=== PATIENT | female | born 1995 ===

== ENCOUNTER 2021-04-17 03:16 | Emergency (ER) | payer BC, OTHER ==
--- OUTSIDE RECORDS SUMMARY | 2021-04-17 03:19 | XMS REPORT | Continuity of Care Document ---
:1995 Author Organization [facility] t Address [address] [place] [address] [address] [place] [address] Care Team Providers Name Role Phone Violetta SARABIA Primary Care Physician Unavailable SALEEM RAMIREZ Attending Clinician Unavailable MARISOL Attending Clinician Unavailable Marisol OHARA Attending Clinician Александр FARLEY Attending Clinician Saleem Ramirez MD Attending Clinician EBADRI Attending Clinician Unavailable YUNI Attending Clinician Unavailable UNKNOWN Attending Clinician Unavailable DICLEMENTE Attending Clinician Unavailable DICLEMENTE Attending Clinician Unavailable SALEEM RAMIREZ Admitting Clinician Unavailable Agustín DAS Admitting Clinician Unavailable Payers Payer Name Policy Type Policy Number Effective Date Expiration Date [place] [facility] [id number] 2018 00:00:00 [facility] [id number] 2019 CHOICE MEDICAID 00:00:00 Problems Condition Condition Condition Status Onset Resolution Last Treating Co mments Source Name Details Category Date Date Treatment Clinician Date Morbid Morbid Disease Active Univers obesity obesity 5-28 [place] mass index 00 [place] dical of of Branch 40.0-49.9 40.0-49.9 Genital Genital Disease Active Overview: Univ ers warts warts 4-12 Formattin ity of 00:00: g of this [place] 00 note Medical might be Branch different from the original. 07/30/18 - perineal and hymenal genital warts s/p excision. Histology consisten t with benign condyloma . 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 - ity of 00:00: [place] 00 [facility] Allergies, Adverse Reactions, Alerts Allergy Allergy Status Severity Reaction(s) Onset Inactive Treating Comm ents Source Name Type Date Date Clinician NO KNOWN Drug Active Univers ALLERGIE Class ity of S [facility] Social History Social Habit Start Date Stop Date Quantity Comments Source Exposure to Not sure [facility] SARS-CoV-2 [facility] (event) [place] Alcohol intake 2021-03-25 2021-03-25 Current drinker Unive rsity of 00:00:00 00:00:00 of alcohol [facility] (finding) [place] Tobacco use and 2016-03-27 2016-03-27 Never used Universit y of exposure 00:00:00 00:00:00 [facility] Sex Assigned At [birth year] Universit y of 00:00:00 00:00:00 [facility] Smoking Status Start Date Stop Date Source Never smoker [facility] Medications Ordered Filled Start Stop Current Ordering Indication Dosage Frequency Signature Comments Components Source Medication Medication Date Date Medication? Clinician (SIG) Name Name mich 2020-04 Yes [id number] 5mL Take 5 mL Univers mine-pseudo 05-26 by mouth 4 it y of ephedrine-D 00:[place] (BROMFED 00 times Medical DM) 2-30-10 daily as Bran ch mg/5 mL needed for syrup Congestion /Allergies or Cough. ondansetron 2020-04 Yes [id number] 4mg Take 1 Univers 4 mg 2-01 tablet by ity of disintegrat 00:00: mouth [place] ing tablet 00 every 8 Medica l (eight) Branch hours as needed for Nausea and Vomiting (N/V). benzonatate 2020-04 Yes [id number] 200mg Take 2 Univers 100 mg 2-01 capsules ity of capsule 00:00: [place] 2 [place] (two) Medical times Branch daily as needed for Cough. fluticasone 2020-04 Yes [id number] 1{spray Use 1 Univers propionate 2-01 } [place] in ity o f 50 00:00: each [place] mcg/actuati 00 nostril Medic al on nasal daily. Branch spray ondansetron 2020-04 Yes [id number] 4mg Take 1 Univers 4 mg 2-01 tablet by ity of disintegrat 00:00: mouth [place] ing tablet 00 every 8 Medica l (eight) Branch hours as needed for Nausea and Vomiting (N/V). benzonatate 2020-04 Yes [id number] 200mg Take 2 Univers 100 mg 2-01 capsules ity of capsule 00:00: [place] 2 [place] (two) Medical times Branch daily as needed for Cough. fluticasone 2020-04 Yes [id number] 1{spray Use 1 Univers propionate 2-01 } [place] in ity o f 50 00:00: each [place] mcg/actuati 00 nostril Medic al on nasal daily. Branch spray No known No Univers medications 01-16 ity of 14:21: [address] No known No Univers medications 01-16 ity of 14:21: [address] Immunizations Ordered Filled Immunization Date Status Comments [facility] e Immunization Name Name [facility] 2021-01-16 Completed University of 00:00:00 [facility] 2021-01-16 Completed University of 00:00:00 [facility] 2021-01-16 Completed University of 00:00:00 [facility] 2021-01-16 Completed University of 00:00:00 [facility] TDAP 2019-09-01 Completed University of 00:00:00 [facility] TDAP 2019-09-01 Completed University of 00:00:00 [facility] TDAP 2019-09-01 Completed University of 00:00:00 [facility] TDAP 2019-09-01 Completed University of 00:00:00 [facility] 2018-08-06 Completed University of 00:00:00 [facility] 2018-08-06 Completed University of 00:00:00 [facility] 2018-08-06 Completed University of 00:00:00 [facility] 2018-08-06 Completed University of 00:00:00 [facility] Vital Signs Vital Name Observation Time Observation Value Comments Source Systolic blood 2021-03-25 16:03:00 114 mm[Hg] Univer sity of pressure [place] [facility] Diastolic blood 2021-03-25 16:03:00 80 mm[Hg] Unive rsity of pressure [place] [facility] Heart rate 2021-03-25 16:03:00 78 /min Universi ty [facility] [place] [facility] Body temperature 2021-03-25 16:03:00 37.06 Cristy Univ ersity of [place] [facility] Respiratory rate 2021-03-25 16:03:00 18 /min Univ ersity of [place] [facility] Body height 2021-03-25 16:03:00 170.2 cm [facility] [place] [facility] Body weight 2021-03-25 16:03:00 114.443 kg [facility]i [facility] [place] [facility] BMI 2021-03-25 16:03:00 39.52 kg/m2 [facility]i ty [facility] [place] [facility] Oxygen saturation in 2021-03-25 16:03:00 100 /min University of Arterial blood by [place] Jooce lynette Pulse oximetry Branch Systolic blood 2021-03-20 22:16:00 124 mm[Hg] Univer sity of pressure [place] [facility] Diastolic blood 2021-03-20 22:16:00 85 mm[Hg] Unive rsity of pressure [place] [facility] Heart rate 2021-03-20 22:16:00 103 /min [facility]i ty [facility] [place] [facility] Body temperature 2021-03-20 22:16:00 36.78 Cristy Univ ersity [facility] [place] [facility] Respiratory rate 2021-03-20 22:16:00 18 /min Univ ersity [facility] [place] [facility] Body height 2021-03-20 22:16:00 172.7 cm [facility] [place] [facility] Body weight 2021-03-20 22:16:00 112.946 kg [facility]i [facility] [place] [facility] BMI 2021-03-20 22:16:00 37.86 kg/m2 [facility] [place] [facility] Oxygen saturation in 2021-03-20 22:16:00 99 /min University of Arterial blood by [employer] lynette Pulse oximetry Branch Systolic blood 2021-01-16 18:42:00 128 mm[Hg] Univer sity of pressure [place] [facility] Diastolic blood 2021-01-16 18:42:00 82 mm[Hg] Unive rsity of pressure [facility] Heart rate 2021-01-16 18:42:00 96 /min [facility] Body temperature 2021-01-16 18:42:00 36.78 Cristy [facility] Res[facility] rate 2021-01-16 18:42:00 18 /min [facility] Body height 2021-01-16 18:42:[address] [facility] Body weight 2021-01-16 18:42:[address] [facility] BMI 2021-01-16 18:42:00 37.86 kg/m2 [facility] Procedures Procedure Date / Time Performed Performing Clinician Sour e POCT RAPID FLU A AND 2021-03-20 22:36:00 Altagracia Fountain [facility] B TEST [facility] GARDASIL 9 (HPV 9V) 2021-01-16 19:16:43 Demetri Ramirez [facility] VACCINE [facility] POCT TEST 2021-01-16 00:00:[address] [facility] Encounters Start End Encounter Admission Attending Care Care Encounter Source Date/Time Date/Time Type Type Clinicians Facility Department ID 2021-02-15 Outpatient P [facility] [id number] [facility] [id number] Univers [facility]:30[facility] 2021-02-15 Out[facility] P [facility] [id number] Univers [facility]:24[facility] 2022-01-20 2022-01-20 Outpatient R DEMETRI RAMIREZ [facility] [id number] Univers 13:30:00 13:30:00 [id number] [facility] 2021-07-16 2021-07-16 Outpatient R [facility] [id number] Univers 14:00:00 14:00:00 [id number] [facility] 2021-03-25 2021-03-25 Outpatient R MARISOL IDINNA [facility] [id number] Univers 10:00:00 10:24:05 DYLON escamilla o [facility] 2021-03-25 2021-03-25 [facility] [id number] Univers 09:57:29 10:24:05 Care [facility] [id number] i ty of [place] [id number] Juan Carlos as GM?BLEA [id number] [facility] [address] MED[facility] OFFICE [facility] 2021-03-25 2021-03-25 Outpatient R [facility] [id number] Univers 10:00:00 10:00:00 [id number] ity [facility] 2021-03-20 2021-03-20 [facility] [id number] Univers 16:20:00 16:29:02 DYLON sanchez [facility] 2021-03-20 2021-03-20 Urgent Altagracia Fountain [facility] [id number] Univers 16:14:06 16:29:02 [facility] [id number] ity of [place] [id number] Juan Carlos as GM?BLEA [id number] [address] MEDICAL OFFICE [facility] 2021-03-20 2021-03-20 Outpatient R [facility] [id number] Univers 15:40:00 15:40:00 [facility] 2021-01-16 2021-01-16 Office [facility] [id number] Univers 13:26:56 14:18:22 Visit Cam [place] [id number] i ty of [place] [id number] [place] Professio [id number] Nm abdirahman [address] 2021-01-16 2021-01-16 Outpatient R DEMETRI RAMIREZ [facility] [id number] Univers 13:30:00 13:30:00 [id number] [facility] 2021-01-16 2021-01-16 Outpatient R JAMES DEMETRI [facility] [id number] Univers 13:30:00 13:30:00 ity of [facility] 2020-12-13 2020-12-13 Outpatient R DEMETRI RAMIREZ [facility] [id number] Univers 10:00:00 10:00:00 [id number] ity of [facility] 2020-12-13 2020-12-13 Outpatient R DEMETRI RAMIREZ [facility] [id number] Univers 10:00:00 10:00:00 ity of [facility] 2020-11-30 2020-11-30 Outpatient R [facility] [id number] Univers 18:00:00 18:00:00 [id number] ity of [facility] 2020-11-30 2020-11-30 Outpatient R LEIGH [facility] [id number] Univers 18:00:00 18:00:00 MELISSAKUNAL ity [facility] 2020-06-07 2020-06-07 Outpatient R OMERARVIN [facility] [id number] Univers 15:00:00 15:00:00 ROSARIO [id number] ity [facility] 2020-06-07 2020-06-07 [facility] [id number] Univers 15:00:00 15:00:00 ROSARIO ity [facility] 2020-05-11 2020-05-11 Outpatient R [facility] [id number] Univers 09:20:00 09:20:00 [id number] ity [facility] 2020-01-02 2020-01-02 Outpatient R [facility] [id number] Univers 10:40:00 10:40:00 [id number] ity [facility] 2020-01-02 2020-01-02 Outpatient R [facility] [id number] Univers 10:40:00 10:40:00 ity of [facility] 2020-01-01 2020-01-01 Outpatient R [facility] [id number] Univers 08:30:00 08:30:00 [id number] ity [facility] 2020-01-01 2020-01-01 Outpatient R UNKNOWN, [facility] [id number] Univers 08:30:00 08:30:00 ATTENDING ity of [facility] 2019-12-06 2019-12-06 Outpatient R DEMETRI RAMIREZ [facility] [id number] Univers 16:00:00 16:00:00 [id number] ity [facility] 2019-12-06 2019-12-06 Outpatient R DEMETRI RAMIREZ [facility] [id number] Univers 16:00:00 16:00:00 ity [facility] 2019-11-07 2019-11-07 Outpatient R DEMETRI RAMIREZ [facility] [id number] Univers 16:15:00 16:15:00 ity [facility] 2019-11-07 2019-11-07 [facility] [id number] Univers 16:15:00 16:15:00 ity [facility] 2019-11-05 2019-11-05 Outpatient P LATOSHASlava BRIEN [facility] [id number] Univers 17:44:00 17:44:00 [facility] 2019-11-04 2019-11-04 Outpatient R [facility] [id number] Univers 14:00:00 14:00:00 [id number] ity [facility] 2019-11-04 2019-11-04 Outpatient R [facility] [id number] Univers 14:00:00 14:00:00 ity [facility] 2019-10-31 2019-10-31 Outpatient R DEMETRI RAMIREZ [facility] [id number] Univers 16:15:00 16:15:00 [id number] ity [facility] 2019-10-31 2019-10-31 Outpatient R DEMETRI RAMIREZ [facility] [id number] Univers 16:15:00 16:15:00 ity [facility] 2019-10-24 2019-10-24 Outpatient R KATHARINESUNIL [facility] [id number] Univers 09:15:00 09:15:00 ROSARIO ity [facility] 2019-10-24 2019-10-24 Outpatient R YUNI [facility] [id number] Univers 09:15:00 09:15:00 ROSARIO [facility] 2019-10-18 2019-10-18 Outpatient R [facility] [id number] Univers 14:15:00 14:15:00 ity [facility] 2019-10-18 2019-10-18 Outpatient R [facility] [id number] Univers 14:15:00 14:15:00 ity of [facility] 2019-10-17 2019-10-17 Outpatient R DEMETRI RAMIREZ [facility] [id number] Univers 15:30:00 15:30:00 [id number] ity of [facility] 2019-10-17 2019-10-17 Outpatient R DEMETRI RAMIREZ [facility] [id number] Univers 15:30:00 15:30:00 ity of [facility] 2019-10-03 2019-10-03 Outpatient R YUNI [facility] [id number] Univers 16:30:00 16:30:00 ROSARIO [id number] ity [facility] 2019-10-03 2019-10-03 Outpatient R OMERARVIN [facility] [id number] Univers 16:30:00 16:30:00 ROSARIO ity [facility] 2019-09-19 2019-09-19 Outpatient R [facility] [id number] Univers 08:00:00 08:00:00 ity [facility] 2019-09-19 2019-09-19 Outpatient P [facility] [id number] Univers 08:00:00 08:00:00 ity [facility] 2019-09-15 2019-09-15 Outpatient R DEMETRI RAMIREZ [facility] [id number] Univers 15:30:00 15:30:00 [id number] ity of [facility] 2019-09-15 2019-09-15 Outpatient R DEMETRI RAMIREZ [facility] [id number] Univers 15:30:00 15:30:00 ity [facility] 2019-09-01 2019-09-01 Outpatient R YUNI [facility] [id number] Univers 13:00:00 13:00:00 ROSARIO [id number] ity [facility] 2019-09-01 2019-09-01 Outpatient R YUNI [facility] [id number] Univers 13:00:00 13:00:00 ROSARIO ity [facility] 2019-08-10 2019-08-10 Outpatient DEMETRI AMES [facility] [id number] Univers 13:00:00 13:00:00 [id number] [facility] 2019-08-10 2019-08-10 Outpatient DEMETRI AMES [facility] [id number] Univers 13:00:00 13:00:00 [facility] 2019-07-13 2019-07-13 Outpatient Didier TELLOARVIN [facility] [id number] Univers 13:00:00 13:00:00 ROSARIO [id number] [facility] 2019-07-13 2019-07-13 Outpatient Didier MORRISSEY [facility] [id number] Univers 13:00:00 13:00:00 ROSARIO [facility] 2019-06-27 2019-06-27 Outpatient P [facility] [id number] Univers 08:00:00 08:00:00 [facility] 2019-06-27 2019-06-27 Outpatient P [facility] [id number] Univers 08:00:00 08:00:00 [facility] 2019-06-22 2019-06-22 Outpatient P [facility] [id number] Univers 13:00:00 13:00:00 [facility] 2019-06-15 2019-06-15 Outpatient Didier TELLOARVIN [facility] [id number] Univers 14:45:00 14:45:00 ROSARIO [facility] 2019-03-28 2019-03-28 Outpatient DEMETRI AMES [facility] [id number] Univers 16:01:05 23:59:00 [facility] Results Test Description Test Time Test Comments Results Result Comments Source POCT RAPID FLU A AND B TEST 2021-03-20 22:36:00 Test Item Value Reference Range Interpretation Comme nts POCT INFLUENZA A (test code = 3840) Negative Negative - Negativ e POCT INFLUENZA B (test code = 3841) Negative Negative - Negativ e Lab Interpretation (test code = 70767-3) [id number] 19:15:00 Test Item Value Reference Range Interpretation Comments POCT PREG (test code = 1605) Negative On board controls acceptable with C Yes Line (test code = 3574) POCT PREG LOT # (test code = 3575) POCT PREG TEST DATE (test code = 3576) [id number] 19:15:00 Test Item Value Reference Range Interpretation Comments POCT PREG (test code = 1605) Negative On board controls acceptable with C Yes Line (test code = 3574) POCT PREG LOT # (test code = 3575) POCT PREG TEST DATE (test code = 3576) [facility]
[2021-04-17] MEDS ORDERED: ACETAMINOPHEN 500 MG TAB ONE (04:01)
[2021-04-17 04:52] LABS: SARS-COV-2 RT PCR POSITIVE (NEGATIVE)
[2021-04-17 05:28] LABS: Absolute Lymphocytes (CBC) 0.8 K/uL (0.7-4.9); Hematocrit 39.1 % (36.0-45.0); Lymphocytes % 10.1 % (15.3-44.8); MPV 7.9 fL (7.6-11.3); RBC Red Blood Cell Count 4.99 M/uL (3.86-4.86)
[2021-04-17] MEDS ORDERED: NA CHLORIDE 0.9% 1,000 ML ONE (05:37)
[2021-04-17 05:40] LABS: Protime INR 1.02
[2021-04-17 05:44] LABS: ALT/SGPT 25 U/L (12-78); AST/SGOT 15 U/L (15-37); Albumin 3.5 g/dL (3.4-5.0); Alkaline Phosphatase 77 U/L (45-117); BUN Blood Urea Nitrogen 8 mg/dL (7-18); Bicarbonate 23 mmol/L (21-32); Bilirubin Direct 0.1 mg/dL (0-0.2); Bilirubin Total 0.3 mg/dL (0.2-1.0); Glucose Level 127 mg/dL (74-106); Magnesium 2.1 mg/dL (1.8-2.4); NT PRO-BNP 28 pg/mL (<125); Potassium 3.5 mmol/L (3.5-5.1); Protein, Total 7.4 g/dL (6.4-8.2); Sodium Level 136 mmol/L (136-145); Troponin (Emerg Dept Use Only) < 0.02 ng/mL (0.0-0.045)
[2021-04-17 06:04] LABS: Urine Blood Negative (Negative); Urine Glucose Negative (Negative); Urine Protein Negative (Negative); Urine Specific Gravity 1.015 (1.005-1.030); Urine pH 5.5 (5.0-7.0)
--- NOTE | 2021-04-17 06:46 | EDPHYS ---
Physician Documentation [facility] Name: Kasandra Brown Age: 26 yrs Sex: Female : 1995 Arrival Date: 04/17/2021 Time: 03:20 Bed 15 Private MD: ED Physician Gopal Barrera HPI: 04/17 05:06 This 26 yrs old Female presents to ER via Ambulatory with complaints of Fever, Chest mh7 Pain, Sore Throat, BODY ACHES. 05:06 The patient reports fever, not measured (subjective). Onset: The symptoms/episode mh7 began/occurred yesterday. Modifying factors: there are no obvious modifying factors. Associated signs and symptoms: Pertinent positives: chest pain, cough, that is dry, myalgias, sinus congestion, sore throat, Body aches, Pertinent negatives: abdominal pain, altered mental status, arthralgias, backache, chills, diarrhea, pulling at ears, earache, headache, hemoptysis, nausea, night sweats, sinus drainage, skin rash, shortness of breath, swelling, vomiting. Severity of symptoms: At their worst the symptoms were moderate yesterday, in the emergency department the symptoms have improved moderately. 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 - Social history:: Smoking status: Patient denies any tobacco usage or history of. ROS: 05:06 Eyes: Negative for injury, pain, redness, and discharge, Neck: Negative for injury, mh7 pain, and swelling, Abdomen/GI: Negative for abdominal pain, nausea, vomiting, diarrhea, and constipation, Back: Negative for injury and pain, : Negative for injury, bleeding, discharge, and swelling, MS/Extremity: Negative for injury and deformity, Skin: Negative for injury, rash, and discoloration, Neuro: Negative for headache, weakness, numbness, tingling, and seizure, Psych: Negative for depression, anxiety, suicide ideation, homicidal ideation, and hallucinations, Allergy/Immunology: Negative for hives, rash, and allergies, Endocrine: Negative for neck swelling, polydipsia, polyuria, polyphagia, and marked weight changes. Exam: 05:06 Constitutional: This is a well developed, well nourished patient who is awake, alert, mh7 and in no acute distress. Head/Face: Normocephalic, atraumatic. Eyes: Pupils equal round and reactive to light, extra-ocular motions intact. Lids and lashes normal. Conjunctiva and sclera are non-icteric and not injected. Cornea within normal limits. Periorbital areas with no swelling, redness, or edema. ENT: Nares patent. No nasal discharge, no septal abnormalities noted. Tympanic membranes are normal and external auditory canals are clear. Oropharynx with no redness, swelling, or masses, exudates, or evidence of obstruction, uvula midline. Mucous membranes moist. Neck: Trachea midline, no thyromegaly or masses palpated, and no cervical lymphadenopathy. Supple, full range of motion without nuchal rigidity, or vertebral point tenderness. No Meningismus. Chest/axilla: Normal chest wall appearance and motion. Nontender with no deformity. No lesions are appreciated. Cardiovascular: Regular rate and rhythm with a normal S1 and S2. No gallops, murmurs, or rubs. Normal PMI, no JVD. No pulse deficits. Respiratory: Lungs have equal breath sounds bilaterally, clear to auscultation and percussion. No rales, rhonchi or wheezes noted. No increased work of breathing, no retractions or nasal flaring. Abdomen/GI: Soft, non-tender, with normal bowel sounds. No distension or tympany. No guarding or rebound. No evidence of tenderness throughout. Back: No spinal tenderness. No costovertebral tenderness. Full range of motion. Skin: Warm, dry with normal turgor. Normal color with no rashes, no lesions, and no evidence of cellulitis. MS/ Extremity: Pulses equal, no cyanosis. Neurovascular intact. Full, normal range of motion. Neuro: Awake and alert, GCS 15, oriented to person, place, time, and situation. Cranial nerves II-XII grossly intact. Motor strength 5/5 in all extremities. Sensory grossly intact. Cerebellar exam normal. Normal gait. Psych: Awake, alert, with orientation to person, place and time. Behavior, mood, and affect are within normal limits. Vital Signs: 03:48 BP 117 / 61; Pulse 104; Resp 16 S; Temp 101.3(O); Pulse Ox 99% on R/A; Weight 113.4 kg bb (R); Height 5 ft. 7 in. (170.18 cm) (R); Pain 6/10; 05:00 Temp 99.6(O); bb 06:45 BP 109 / 65; Pulse 93; Resp 18; Pulse Ox 100% on R/A; sm5 03:48 Body Mass Index 39.16 (113.40 kg, 170.18 cm) bb MDM: 06:44 Differential diagnosis: viral Infection, bacterial infection, URI, bronchitis, mh7 pneumonia. Data reviewed: vital signs, nurses notes, lab test result(s), CBC, electrolytes, Flu: negative urinalysis, Covid positive, EKG, radiologic studies, plain films. Data interpreted: Pulse oximetry: on room air is 99 %. Interpretation: normal. Counseling: I had a detailed discussion with the patient and/or guardian regarding: the historical points, exam findings, and any diagnostic results supporting the discharge/admit diagnosis, lab results, radiology results, the need for outpatient follow up. Response to treatment: the patient's symptoms have resolved after treatment, the patient's blood pressure is in an acceptable range, mental status has returned to baseline, the patient no longer shows bradycardia, the patient is not short of breath, the patient is not tachycardic, the patient's pain is gone, the patient's temperature has normalized, patient is well hydrated. 06:46 Patient medically screened. mh7 06:47 ED course: Well-appearing, no acute distress, vital signs stable, no focal neurological 7 deficits. No chest pain, shortness of breath, nausea, vomiting or other complaints. Discussed all test results and findings with the patient. Also discussed with patient could qualify for monoclonal antibody infusion however no monoclonal antibody is available at this time at this facility. Patient not sure if that is the treatment that she wants but explained to patient to call state or her local health department for location of infusion centers if she becomes interested before 10 days of symptoms.. 04/17 03:54 Order name: COVID-19/FLU A+B (Document "Date of Onset" if Symptomatic); Complete Time: bb 04:58 04/17 03:54 Order name: Strep; Complete Time: 04:58 04/17 04:23 Order name: Throat Culture [facility] 04/17 05:05 Order name: Basic Metabolic Panel [facility] 04/17 05:05 Order name: CBC with Diff; Complete Time: 05:41 [facility] 04/17 05:05 Order name: LFT's; Complete Time: 06:26 [facility] 04/17 05:05 Order name: Magnesium; Complete Time: 06:26 [facility] 04/17 05:05 Order name: NT PRO-BNP; Complete Time: 06:26 [facility] 04/17 05:05 Order name: PT-INR; Complete Time: 05:41 [facility] 04/17 05:05 Order name: Troponin (emerg Dept Use Only); Complete Time: 06:26 [facility] 04/17 05:05 Order name: D-Dimer; Complete Time: 05:41 [facility] 04/17 05:06 Order name: Basic Metabolic Panel; Complete Time: 06:26 [facility] 04/17 06:04 Order name: Urine Dipstick-Ancillary; Complete Time: 06:26 [facility] 04/17 06:06 Order name: Urine --Ancillary (enter results) [facility] 04/17 05:05 Order name: XRAY Chest (1 view) [facility] 04/17 05:05 Order name: EKG; Complete Time: 05:06 [facility] 04/17 05:05 Order name: Cardiac monitoring; Complete Time: 05:18 [facility] 04/17 05:05 Order name: EKG - Nurse/Tech; Complete Time: 05:45 [facility] 04/17 05:05 Order name: IV Saline Lock; Complete Time: 05:18 [facility] 04/17 05:05 Order name: Labs collected and sent; Complete Time: 05:18 [facility] 04/17 05:05 Order name: O2 Per Protocol; Complete Time: 05:18 [facility] 04/17 05:05 Order name: O2 Sat Monitoring; Complete Time: 05:18 [facility] 04/17 05:05 Order name: Urine Dipstick-Ancillary (obtain specimen); Complete Time: 06:04 [facility] 04/17 05:05 Order name: Urine Test (obtain specimen); Complete Time: 06:04 [facility] 04/17 06:07 Order name: Urine --Ancillary EDMS Administered Medications: 04:03 Drug: Tylenol 1000 mg Route: PO; bb 05:00 Follow up: Response: No adverse reaction; Temperature is decreased bb 05:45 Drug: NS 0.9% 1000 ml Route: IV; Rate: 1000 ml; Site: right antecubital; sm5 Disposition Summary: 04/17/21 06:46 Discharge Ordered Location: Home [facility] Problem: new [facility] Symptoms: have improved [facility] Condition: Stable [facility] Diagnosis - Coronavirus infection, unspecified [facility] Followup: [facility] - With: Private Physician - When: 1 - 2 days - Reason: Worsening of condition, Recheck today's complaints, Continuance of care, Re-evaluation by your physician Discharge Instructions: - Discharge Summary Sheet [facility] - COVID-19 [facility] - COVID-19 Frequently Asked Questions [facility] - 10 Things You Can Do to Manage Your COVID-19 Symptoms at Home - [place] [address] - COVID-19: Quarantine vs. Isolation - [place] [address] Forms: - Medication Reconciliation Form [facility] - Thank You Letter [facility] - Antibiotic Education [facility] - Prescription Opioid Use [facility] Prescriptions: - albuterol sulfate 90 mcg/actuation Inhalation HFA aerosol inhaler - inhale 1 puff by INHALATION route every 6 hours As needed; 1 Inhaler; Refills: [facility] 0, Product Selection Permitted - Tessalon Perles 100 mg Oral Capsule - take 1 capsule by ORAL route every 8 hours As needed; 15 capsule; Refills: 0, 7 Product Selection Permitted - Zithromax Z-Ramiro 250 mg Oral Tablet - take 1 tablet by ORAL route as directed for 5 days Day 1 - take two (2) tablets [facility] one time. Day 2, 3, 4 , 5 take one (1) tablet once daily.; 6 tablet; Refills: 0, Product Selection Permitted Signatures: Dispatcher [employer] EDMS Keily Palomares RN RN Gopal Keller MD MD [facility] Susan Cook RN RN 5
--- NOTE | 2021-04-17 06:46 | ER ---
Nurse's Notes [facility] Name: Kasandra Brown Age: 26 yrs Sex: Female : 1995 Arrival Date: 04/17/2021 Time: 03:20 Bed 15 Private MD: Diagnosis: Coronavirus infection, unspecified Presentation: 04/17 03:48 Chief complaint: Patient states: she has a sore throat, fever, body aches since bb yesterday. Coronavirus screen: cough unrelated to allergies, fever, muscle pain. Ebola Screen: No symptoms or risks identified at this time. Initial Sepsis Screen: Does the patient meet any 2 criteria? No. Patient's initial sepsis screen is negative. Does the patient have a suspected source of infection? No. Patient's initial sepsis screen is negative. Risk Assessment: Do you want to hurt yourself or someone else? Patient reports no desire to harm self or others. Onset of symptoms was April 16, 2021. 03:48 Method Of Arrival: Ambulatory bb 03:48 Acuity: LENO 3 bb Triage Assessment: 03:51 General: Appears in no apparent distress. uncomfortable, Behavior is calm, cooperative. bb Pain: Complains of pain in all over Pain currently is 6 out of 10 on a pain scale. Neuro: Level of Consciousness is awake, alert, obeys commands, Oriented to person, place, time, situation. Cardiovascular: Capillary refill < 3 seconds Patient's skin is warm and dry. Respiratory: Airway is patent Respiratory effort is even, unlabored. GI: No signs and/or symptoms were reported involving the gastrointestinal system. : Urine is clear. Derm: Skin is pink, warm \T\ dry. Musculoskeletal: Circulation, motion, and sensation intact. 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 - Social history:: Smoking status: Patient denies any tobacco usage or history of. Screenin:47 Abuse screen: Denies threats or abuse. Denies injuries from another. Nutritional sm5 screening: No deficits noted. Tuberculosis screening: No symptoms or risk factors identified. Fall Risk No fall in past 12 months (0 pts). No secondary diagnosis (0 pts). IV access (20 points). Ambulatory Aid- None/Bed Rest/Nurse Assist (0 pts). Gait- Normal/Bed Rest/Wheelchair (0 pts) Mental Status- Oriented to own ability (0 pts). Total Stein Fall Scale indicates No Risk (0-24 pts). Assessment: 06:46 General: Appears in no apparent distress. Behavior is calm, cooperative. Pain: Denies sm5 pain. Pain does not radiate. Pain began yesterday. Neuro: No deficits noted. Level of Consciousness is awake, alert, Oriented to person, place, time, situation. Cardiovascular: No deficits noted. Capillary refill < 3 seconds Patient's skin is warm and dry. Respiratory: No deficits noted. Airway is patent Trachea midline Respiratory effort is even, unlabored. Vital Signs: 03:48 BP 117 / 61; Pulse 104; Resp 16 S; Temp 101.3(O); Pulse Ox 99% on R/A; Weight 113.4 kg bb (R); Height 5 ft. 7 in. (170.18 cm) (R); Pain 6/10; 05:00 Temp 99.6(O); bb 06:45 BP 109 / 65; Pulse 93; Resp 18; Pulse Ox 100% on R/A; sm5 03:48 Body Mass Index 39.16 (113.40 kg, 170.18 cm) ED Course: 03:20 Patient arrived in ED. 2 03:50 Triage completed. 03:51 Arm band placed on Patient placed in waiting room, Patient notified of wait time. bb covid/flu/strep sent. 04:58 Gopal Barrera MD is Attending Physician. [facility] 05:05 Susan Cook RN is Primary Nurse. 5 05:15 Inserted saline lock: 20 gauge in right antecubital area, using aseptic technique. 5 Blood collected. Patient maintains SpO2 saturation greater than 95% on room air. 05:18 Basic Metabolic Panel Sent. 5 05:18 CBC with Diff Sent. 5 05:18 LFT's Sent. 5 05:18 Magnesium Sent. 5 05:19 NT PRO-BNP Sent. sm5 05:19 PT-INR Sent. sm5 05:19 Troponin (emerg Dept Use Only) Sent. sm5 05:19 Basic Metabolic Panel Sent. sm5 05:22 XRAY Chest (1 view) In Process Unspecified. EDMS 06:23 Urine --Ancillary (enter results) Sent. sm5 06:47 Patient has correct armband on for positive identification. Bed in low position. Call [facility] light in reach. Side rails up X2. development consultant on. Pulse ox on. NIBP on. 06:47 No provider procedures requiring assistance completed. sm5 07:00 IV discontinued, intact, bleeding controlled, No redness/swelling at site. Pressure 5 dressing applied. Administered Medications: 04:03 Drug: Tylenol 1000 mg Route: PO; 05:00 Follow up: Response: No adverse reaction; Temperature is decreased bb 05:45 Drug: NS 0.9% 1000 ml Route: IV; Rate: 1000 ml; Site: right antecubital; 5 Outcome: 06:46 Discharge ordered by MD. rodrigues 06:59 Discharged to home ambulatory, with significant other. sm5 06:59 Condition: good 06:59 Discharge instructions given to patient, significant other, Instructed on discharge instructions, follow up and referral plans. medication usage, Demonstrated understanding of instructions, follow-up care, medications, Prescriptions given X 3. 07:00 Patient left the ED. 5 Signatures: Dispatcher [employer] Keily Ordaz RN RN Gopal Keller MD MD mh7 Alexander, Jessica ja2 Mazur, Sarah, RN RN Michael
[2021-04-17 07:15] VITALS: TEMP 99.6
[2021-04-17 07:16] VITALS: BP 109/65; O2SAT 100
[2021-04-17 07:47] LABS: Urine Specific Gravity/Preg 1.015 (1.005-1.030)
--- NOTE | 2021-04-17 18:44 | RAD REPORT ---
EXAM DESCRIPTION: RAD - Chest Single View - 04/17/2021 5:22 am CLINICAL HISTORY: 6 years Female, Cough;Chest pain COMPARISON: None FINDINGS: No focal lung consolidation. No pleural effusion. No pneumothorax. Cardiac and mediastinal silhouette is unremarkable. No acute osseous abnormality. Soft tissues are unremarkable. IMPRESSION: No acute findings. No focal lung consolidation. Electronically signed by: Berny Phillips DO 04/17/2021 5:59 AM SPEECH/LANGUAGE THERAPIST Due to temporary technical issues with the PACS/Fluency reporting system, reports are being signed by the in house radiologists without review as a courtesy to insure prompt reporting. The interpreting radiologist is fully responsible for the content of the report.
== END 2021-04-17 07:00 | disposition home or self-care (01) ==
LOC: ER 03:16
DX: U07.1 COVID-19 (principal)
CPT/HCPCS: 93005; 87070; 85025; 80048; 36415; 83735; 81025; 85610; 85379; 80076; 87081; 81003; 84484; 83880; 0240U; 71045; 99285; J7030